=== PATIENT | female | born 1975 | race Caucasian/White ===

== ENCOUNTER 2022-06-08 08:00 | Emergency (ER) | payer OTHER, SELFPAY ==
[2022-06-08 08:22] VITALS: BP 166/108; PULSE 119; RESP 16; TEMP 36.9; O2SAT 97; BMI 49.6
--- NOTE | 2022-06-08 08:24 | ECG_ITS ---
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 Measurements Intervals [place] Rate: 105 P: 34 [place]: 114 QRS: -5 QRSD: 93 T: 15 QT: 335 QTc: 443 Interpretive Statements SINUS TACHYCARDIA WITH SHORT [place] INTERVAL INCOMPLETE RIGHT BUNDLE BRANCH BLOCK [90+ ms QRS DURATION, TERMINAL R IN V1/V2, 40+ ms S IN I/aVL/V4/V5/V6] ABNORMAL RHYTHM ECG No previous ECG available for comparison Electronically Signed On 06-08-2022 21:15:11 CDT by Rosa Maria You M.D. [id number]
--- NOTE | 2022-06-08 08:32 | ED_ITS ---
HPI - Headache General: Chief Complaint: Headache Stated Complaint: Dizzy, Confusion, cant focus, f/v/n Time Seen by Provider: 06/08/22 08:18 Source: patient Mode of arrival: ambulatory Limitations: no limitations History of Present Illness: 47-year-old female presents emergency room with complaints of lightheadedness dizziness low-grade fever and headache began last night sore throat nausea vomiting some diarrhea she also states she is a bit confused although she gives a very detailed and thorough history. 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 She took a rapid antigen test at home but thinks she may have administered it incorrectly. Cough nonproductive. Patient is diabetic. MD elicited complaint: headache Onset (ago): hour(s) Onset description: gradually Location: frontal Severity: moderate Quality & Timing: aching Exacerbating factors: none Relieving factors: nothing Associated symptoms: Reports confusion, cough, malaise, nausea, short of breath and weakness; Deny chest pain, diaphoresis, eye pain, fever(s), lightheadedness, loss of vision, neck stiffness, numbness, paresthesias, photophobia, pre-syncope, rash, seizures, sound sensitivity, syncope or vomiting Review of Systems Const: Reports: fatigue and malaise; Denies: fever(s), chills or diaphoresis ENMT: Denies: throat pain, ear or mastoid pain, nasal discharge or nasal congestion Card: Denies: chest pain, lightheadedness, syncope or pre-syncope Resp: Denies: dyspnea, productive cough or non-productive cough GI: Reports: nausea and diarrhea; Denies: abdominal pain or vomiting : Denies: flank pain, difficulty voiding, dysuria, urinary frequency or urinary urgency Musc: Denies: neck pain or back pain Skin/Breast: Denies: rash Neuro: Reports: headache(s) and confusion PFS ED PFSH: Medical History (Updated 06/08/22 @ 11:24 by Satinder Salazar DO) Diabetes mellitus Social History (Updated 06/08/22 @ 08:44 by Satinder Salazar DO) Smoking and tobacco status: never smoked Alcohol intake: never Physical Exam Const: COMMON NORMALS: no acute distress GENERAL APPEARANCE: cooperative and comfortable ORIENTATION/CONSCIOUSNESS: Yes awake, Yes oriented to person, Yes oriented to place and Yes oriented to time HENMT: COMMON NORMALS: normocephalic, atraumatic and hearing grossly normal bilaterally HEAD & SCALP: normocephalic and atraumatic Eye: DIRECT OPHTHALMOSCOPY: No photophobia Neck/C-Spine: COMMON NORMALS: no JVD Resp: COMMON NORMALS: normal respiratory effort, No retractions, No use of accessory muscles and clear to auscultation bilaterally AUSCULTATION: clear to auscultation bilaterally Cardio: COMMON NORMALS: no JVD, regular rate, regular rhythm and No murmurs present (Cardio) RATE: regular rate RHYTHM: regular rhythm GI: COMMON NORMALS: Soft to palpation and No hepatosplenomegaly present AUSCULTATION: Yes normoactive bowel sounds PALPATION: Yes Soft to palpation, No Tenderness to palpation present (GI), No Guarding due to palpation present (GI) and Yes No hepatosplenomegaly present Extremity: COMMON NORMALS: normal to inspection, capillary refill normal, no c lubbing, cyanosis or edema, no calf tenderness and no pedal edema Neuro: SENSORIUM/ORIENTATION: Yes oriented to person, Yes oriented to place and Yes oriented to time Skin: COMMON NORMALS: no rashes or lesions noted GENERAL SKIN EXAM: no rashes or lesions noted Course Vital Signs: Vital signs: Vital Signs Temperature 98.4 F 06/08/22 08:22 Pulse Rate 78 06/08/22 11:27 Respiratory Rate 18 06/08/22 11:27 Blood Pressure 118/73 06/08/22 11:27 Pulse Oximetry 98 06/08/22 11:27 MDM - Headache Medical Decision Making Suspect patient may have COVID. Vitals stable labs no significant abnormalities nothing clinically significant we will discharge patient home supportive cares advised self quarantine until COVID results have returned. Medical Records I reviewed the patient's medical records. Lab Data I reviewed the patient's lab results. : 06/08/22 08:05 06/08/22 08:05 Radiology Impressions Chest X-Ray 06/08/22 10:19 IMPRESSION: No acute chest abnormality identified. Laboratory Results WBC 12.7 10^3/uL (4.0-10.0) H 06/08/22 08:05 RBC 4.92 10^6/uL (4.1-5.3) 06/08/22 08:05 Hgb 13.9 g/dL (11.5-15.3) 06/08/22 08:05 Hct 40.3 % (37.0-47.0) 06/08/22 08:05 MCV 81.9 fl (81-99) 06/08/22 08:05 MCH 28.3 pg (28.0-34.0) 06/08/22 08:05 MCHC 34.5 g/dL (30.0-36.0) 06/08/22 08:05 RDW 13.5 % (12.1-15.1) 06/08/22 08:05 Plt Count 247 10^3/cmm (130-400) 06/08/22 08:05 MPV 12.3 fL (7.4-10.4) H 06/08/22 08:05 Neut % (Auto) 82.0 % 06/08/22 08:05 Lymph % (Auto) 12.6 % 06/08/22 08:05 [place] % (Auto) 4.4 % 06/08/22 08:05 Eos % (Auto) 0.4 % 06/08/22 08:05 Baso % (Auto) 0.3 % 06/08/22 08:05 Neut # (Auto) 10.39 10^3/uL (1.8-7.7) H 06/08/22 08:05 Lymph # (Auto) 1.6 10^3/uL (0.8-4.8) 06/08/22 08:05 [place] # (Auto) 0.6 10^3/uL (0.2-0.9) 06/08/22 08:05 Eos # (Auto) 0.1 10^3/uL (0.0-0.8) 06/08/22 08:05 Baso # (Auto) 0.0 10^3/uL (0.0-0.1) 06/08/22 08:05 Nucleated RBC % (auto) 0 % 06/08/22 08:05 Nucleated RBCs # 0.0 /100WBC 06/08/22 08:05 Sodium 136 mmol/L (136-145) 06/08/22 08:05 Potassium 3.8 mmol/L (3.5-5.1) 06/08/22 08:05 Chloride 98 mmol/L (98-107) 06/08/22 08:05 Carbon Dioxide 24 mmol/L (22-29) 06/08/22 08:05 Anion Gap 17.8 (5-19) 06/08/22 08:05 BUN 14 mg/dL (6-20) 06/08/22 08:05 Creatinine 0.8 mg/dL (0.5-0.9) 06/08/22 08:05 GFR Calculation 76.6 mL/min (90-130) L 06/08/22 08:05 Glucose 229 mg/dL (65-115) H 06/08/22 08:05 Calculated Osmolality 290 mOsm/kg (285-295) 06/08/22 08:05 Calcium 9.6 mg/dL (8.5-10.5) 06/08/22 08:05 Total Bilirubin 0.5 mg/dL (0.15-1.2) 06/08/22 08:05 AST 14 U/L (0-32) 06/08/22 08:05 ALT 22 U/L (0-33) 06/08/22 08:05 Alkaline Phosphatase 118 IU/L (35-105) H 06/08/22 08:05 Total Protein 7.1 g/dL (6.6-8.7) 06/08/22 08:05 Albumin 4.1 g/dL (3.5-5.2) 06/08/22 08:05 Globulin 3.0 g/dL (1.3-4.6) 06/08/22 08:05 Urine Color Colorless (Yellow) 06/08/22 11:00 Urine Appearance Clear (CLEAR) 06/08/22 11:00 Urine pH 5 (5-7) 06/08/22 11:00 Ur Specific [place] 1.010 (1.005-1.030) 06/08/22 11:00 Urine Protein Neg (Negative) 06/08/22 11:00 Urine Glucose (UA) 4+ (Normal) H 06/08/22 11:00 Urine Ketones 1+ (Negative) H 06/08/22 11:00 Urine Blood Neg (Negative) 06/08/22 11:00 Urine Nitrate Negative (Negative) 06/08/22 11:00 Urine Bilirubin Neg (Negative) 06/08/22 11:00 Urine Urobilinogen Norm mg/dL (Negative) 06/08/22 11:00 Ur Leukocyte Esterase Negative (Negative) 06/08/22 11:00 Discharge Plan Discharge Patient Disposition: Home Clinical Impression: Suspected 2019-nCoV infection, Diabetes mellitus Condition: Stable Prescriptions: No Action atorvastatin 20 mg Tablet 20 mg PO DAILY 0RF metformin 1,000 mg Tablet 1,000 mg PO BID 0RF lisinopril 5 mg Tablet 5 mg PO DAILY 0RF Farxiga 10 mg Tablet 10 mg PO DAILY 0RF Toujeo Max U-300 SoloStar 300 unit/mL (3 mL) insulin pen 40 unit SUBCUT BEDTIME 0RF Discharge Orders: Discharge ED (Routine); Ordered 06/08/22 Ordered By: Satinder Salazar Discharge Diet: Usual diet Discharge Activity: Increase activity as tolerated Patient Instructions: Opioid Safety Activity Restrictions/Additional Instructions: You were tested for COVID-19 the test has not yet resulted. Recommend you maintain self quarantine until results are in worsening symptoms return otherwise supportive cares. Coding Level of Care Code ED Nuclear Instructor for Ines Fwd Exam Comprehensive
[2022-06-08 08:57] LABS: Basophils % 0.3 %; Eosinophils # 0.1 10^3/uL (0.0-0.8); Eosinophils % 0.4 %; Hematocrit 40.3 % (37.0-47.0); Hemoglobin 13.9 g/dL (11.5-15.3); Lymphocytes # 1.6 10^3/uL (0.8-4.8); Lymphocytes % 12.6 %; Mean Corpuscular HGB Conc 34.5 g/dL (30.0-36.0); Mean Corpuscular Hemoglobin 28.3 pg (28.0-34.0); Mean Corpuscular Volume 81.9 fl (81-99); Mean Platelet Volume 12.3 fL (7.4-10.4); Monocytes # 0.6 10^3/uL (0.2-0.9); Monocytes % 4.4 %; Neutrophils # 10.39 10^3/uL (1.8-7.7); Nucleated Red Blood Cells % 0 %; Platelet Count 247 10^3/cmm (130-400); Red Blood Count 4.92 10^6/uL (4.1-5.3); Red Cell Distribution Width 13.5 % (12.1-15.1); White Blood Count 12.7 10^3/uL (4.0-10.0)
[2022-06-08] MEDS: sodium chloride 0.9% 1,000 ML 999 ML IV (08:58)
[2022-06-08 09:08] VITALS: BP 151/88; PULSE 100; RESP 18; O2SAT 92
[2022-06-08 09:20] LABS: Alanine Aminotransferase 22 U/L (0-33); Albumin Level 4.1 g/dL (3.5-5.2); Alkaline Phosphatase 118 IU/L (35-105); Anion Gap 17.8 (5-19); Aspartate Amino Transferase 14 U/L (0-32); Blood Urea Nitrogen 14 mg/dL (6-20); Calcium 9.6 mg/dL (8.5-10.5); Carbon Dioxide 24 mmol/L (22-29); Chloride 98 mmol/L (98-107); Glomerular Filtration Rate 76.6 mL/min (90-130); Glucose 229 mg/dL (65-115); Osmolality Calculated 290 mOsm/kg (285-295); Potassium 3.8 mmol/L (3.5-5.1); Sodium 136 mmol/L (136-145); Total Bilirubin 0.5 mg/dL (0.15-1.2); Total Protein 7.1 g/dL (6.6-8.7)
--- NOTE | 2022-06-08 10:19 | XR_ITS ---
WS: [id number] XR chest 1V portable [id number] REASON FOR EXAM: dyspnea/cough FINDINGS: The heart and mediastinum are within normal limits. No lung nodule or lung mass. Calcified granulomatous disease in both hemithoraces. No acute pulmonary parenchymal or pleural abnormality. Bony thorax is intact without significant focal abnormality. XR/XR chest 1V portable [id number] IMPRESSION: No acute chest abnormality identified.
[2022-06-08 10:35] VITALS: BP 132/84; PULSE 78; RESP 18; O2SAT 97
[2022-06-08 11:10] LABS: Add Urine Microscopic? NO; Charge for UA Resulting for Rev
[2022-06-08 11:15] LABS: Bilirubin Urine Neg (Negative); Blood Urine Neg (Negative); Glucose Urine UA 4+ (Normal); Ketones Urine 1+ (Negative); Leukocyte Esterase Urine Negative (Negative); Nitrate Urine Negative (Negative); Protein Urine Neg (Negative); Urine Appearance Clear (CLEAR); Urine Color Colorless (Yellow); Urobilinogen Urine Norm (Negative); pH Urine 5 (5-7)
[2022-06-08 11:27] VITALS: BP 118/73; PULSE 78; RESP 18; O2SAT 98
== END 2022-06-08 11:40 | disposition home or self-care (01) ==
PROVIDERS: Emergency Provider Family Medicine
DX: Z20.822 Contact with and (suspected) exposure to COVID-19 (principal); E11.9 Type 2 diabetes mellitus without complications; Z79.84 Long term (current) use of oral hypoglycemic drugs; Z79.4 Long term (current) use of insulin
CPT/HCPCS: 71045; 80053; 81003; 85025; 93005; 96360; 96361; 99285; J7030

== ENCOUNTER 2024-10-29 18:44 | Emergency (ER) | payer OTHER, SELFPAY ==
[2024-10-29] VITALS (14 sets, daily range): BP systolic 122–186; BP diastolic 78–115; PULSE 83–117; RESP 15–25; TEMP 36.8; O2SAT 92–99; BMI 49.6
--- NOTE | 2024-10-29 18:50 | ECG_ITS ---
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 Measurements Intervals [place] Rate: 112 P: 44 [place]: 118 QRS: 3 QRSD: 83 T: 54 QT: 319 QTc: 436 Interpretive Statements SINUS TACHYCARDIA WITH SHORT [place] INTERVAL Compared to ECG 06/08/2022 09:03:25 Incomplete right bundle-branch block no longer present Electronically Signed On 10-31-2024 22:00:05 CERTIFIED [employer] [facility] by Federico Nicolas M.D. [id number]
--- NOTE | 2024-10-29 18:56 | XRR_ITS ---
PROCEDURE INFORMATION: Exam: XR Chest Exam date and time: 10/29/2024 7:25 PM Age: 49 years old Clinical indication: Pain; Chest pressure; Additional info: Chest pain dyspnea TECHNIQUE: Imaging protocol: Radiologic exam of the chest. Views: 1 view. COMPARISON: CR XR chest 1V portable [id number] 06/08/2022 10:26 AM FINDINGS: Lungs: Unremarkable. No consolidation. Pleural spaces: Unremarkable. No pleural effusion. No pneumothorax. Heart/Mediastinum: Unremarkable. No cardiomegaly. Diaphragm: Mild asymmetric elevation of the right hemidiaphragm. Bones/joints: Unremarkable. XR/XR chest 1V portable [id number] IMPRESSION: No acute cardiopulmonary findings.
[2024-10-29 19:47] LABS: Basophils % 0.5 %; Eosinophils # 0.4 10^3/uL (0.0-0.8); Eosinophils % 4.2 %; Hematocrit 44.1 % (36-47); Lymphocytes # 1.7 10^3/uL (0.8-4.8); Lymphocytes % 19.6 %; Mean Corpuscular HGB Conc 32.9 g/dL (30-55); Mean Corpuscular Hemoglobin 27.5 pg (27-33); Mean Corpuscular Volume 83.5 fl (85-98); Monocytes # 0.5 10^3/uL (0.2-0.9); Monocytes % 6.3 %; Neutrophils % 69.3 %; Nucleated Red Blood Cells % 0 %; Platelet Count 206 10^3/cmm (157-399); Red Blood Count 5.28 10^6/uL (3.85-5.65); Red Cell Distribution Width 13.7 % (12.1-15.1); White Blood Count 8.52 10^3/uL (3.29-11.43)
--- NOTE | 2024-10-29 19:48 | ED_ITS ---
HPI - Chest Pain 2 General: Chief Complaint: Chest Pain Stated Complaint: CP tight pressure SOB Time Seen by Provider: 10/29/24 19:04 History of Present Illness: Presents to the ER with substernal pressure and shortness of breath. She has had this chest pain off and on for several weeks but tonight it was worse. 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 Is unable to walk up and down her halls now due to the shortness of breath. Patient does not have any cardiac history or history of high blood pressure but has a strong familial history of both. Blood pressure upon arrival was 153/99 but then it escalated and increased to 186/99. Patient is an obese female diabetic. Patient denies any nausea vomiting or diaphoresis. Related Data Home Medications Medication Instructions Recorded Confirmed atorvastatin 20 mg tablet 20 mg PO DAILY 06/08/22 06/08/22 dapagliflozin propanediol 10 mg 10 mg PO DAILY 06/08/22 06/08/22 tablet (Farxiga) insulin glargine U-300 conc 300 40 unit SUBCUT BEDTIME 06/08/22 06/08/22 unit/mL (3 mL) subcutaneous pen (Toujeo Max U-300 SoloStar) lisinopril 5 mg tablet 5 mg PO DAILY 06/08/22 06/08/22 metformin 1,000 mg tablet 1,000 mg PO BID 06/08/22 06/08/22 Allergies Allergy/AdvReac Type Severity Reaction Status Date / Time No Known Allergies Allergy Verified 06/08/22 08:51 Review of Systems 2 General: Reports: 10 or more systems reviewed and unremarkable except in HPI and below PFSH ED 2 PFSH: Medical History Diabetes mellitus Social History Smoking and tobacco/nicotine status: never used tobacco/nicotine Alcohol intake: never Physical Exam 2 Const: COMMON NORMALS: no acute distress, average body habitus, patient oriented x3, no limitations, healthy appearing, alert and well nourished HENMT: COMMON NORMALS: normocephalic, atraumatic, hearing grossly normal bilaterally, external ears normal, Normal external nose present and moist oral mucous membranes HEAD & SCALP: normocephalic and atraumatic NOSE: Normal external nose present EXTERNAL EAR: Yes external ears normal Neck/C-Spine: COMMON NORMALS: full ROM, no lymphadenopathy, supple, no meningeal signs, no JVD and Thyroid normal THYROID: Thyroid normal Chest: COMMONS NORMALS: normal inspection of the chest; negative for normal palpation of entire chest wall (Tender with palpation of sternal region chest.) Resp: COMMON NORMALS: normal respiratory effort, No retractions, No use of accessory muscles and clear to auscultation bilaterally AUSCULTATION: clear to auscultation bilaterally Cardio: COMMON NORMALS: no JVD, regular rate, regular rhythm, S1 normal heart sound present, S2 normal heart sound present, No gallops present (Cardio), No clicks present (Cardio), No murmurs present (Cardio) and No rub (Cardio) R ATE: regular rate RHYTHM: regular rhythm HEART SOUNDS: S1 normal heart sound present and S2 normal heart sound present GI: COMMON NORMALS: Normal to inspection, nondistended, normoactive bowel sounds present, Soft to palpation, non-tender, No hepatosplenomegaly present and no masses PALPATION: Yes Soft to palpation and Yes No hepatosplenomegaly present Neuro: COMMON NORMALS: patient oriented x3 SENSORIUM/ORIENTATION: Yes alert MENINGEAL SIGNS: Yes no meningeal signs Course 2 Vital Signs: Vital signs: Vital Signs Temperature 98.2 F 10/29/24 18:54 Pulse Rate 117 H 10/29/24 18:54 Respiratory Rate 20 H 10/29/24 18:54 Blood Pressure 168/107 10/29/24 20:19 Pulse Oximetry 94 10/29/24 18:54 Oxygen Delivery Me thod Room Air 10/29/24 18:54 MDM - Chest Pain Medical Decision Making Patient worked up in standard chest pain fashion chest x-ray, EKG, enzymes, patient was pain-free her entire time. She did get 0.2 mg clonidine and 10 mg of hydralazine for her blood pressure. Which corrected to 122/78. Patient was chest pain-free. Patient be discharged home Medical Records I reviewed the patient's medical records. Lab Data I reviewed the patient's lab results. 10/29/24 19:34 Radiology Impressions Chest X-Ray 10/29/24 18:56 IMPRESSION: No acute cardiopulmonary findings. Laboratory Results WBC 8.52 10^3/uL (3.29-11.43) 10/29/24 19:34 RBC 5.28 10^6/uL (3.85-5.65) 10/29/24 19:34 Hgb 14.50 g/dL (11.27-16.99) 10/29/24 19:34 Hct 44.1 % (36-47) 10/29/24 19:34 MCV 83.5 fl (85-98) L 10/29/24 19:34 MCH 27.5 pg (27-33) 10/29/24 19:34 MCHC 32.9 g/dL (30-55) 10/29/24 19:34 RDW 13.7 % (12.1-15.1) 10/29/24 19:34 Plt Count 206 10^3/cmm (157-399) 10/29/24 19:34 MPV 13.0 fL (7.4-10.4) H 10/29/24 19:34 Neut % (Auto) 69.3 % 10/29/24 19:34 Lymph % (Auto) 19.6 % 10/29/24 19:34 [place] % (Auto) 6.3 % 10/29/24 19:34 Eos % (Auto) 4.2 % 10/29/24 19:34 Baso % (Auto) 0.5 % 10/29/24 19:34 Neut # (Auto) 5.90 10^3/uL (1.8-7.7) 10/29/24 19:34 Lymph # (Auto) 1.7 10^3/uL (0.8-4.8) 10/29/24 19:34 [place] # (Auto) 0.5 10^3/uL (0.2-0.9) 10/29/24 19:34 Eos # (Auto) 0.4 10^3/uL (0.0-0.8) 10/29/24 19:34 Baso # (Auto) 0.0 10^3/uL (0.0-0.1) 10/29/24 19:34 Nucleated RBC % (auto) 0 % 10/29/24 19:34 Nucleated RBCs # 0.0 /100WBC 10/29/24 19:34 Troponin T Baseline 21 ng/L (0-10) H 10/29/24 19:34 Troponin T 120 Minute 21.71 ng/L (0-10) H 10/29/24 21:31 Delta Troponin T 0.71 ABS# (0-10) 10/29/24 21:31 All radiology interpretation(s) finalized by discharge Discharge Plan Discharge Patient Disposition: Home Clinical Impression: Chest pain Qualifiers: Chest pain type: unspecified Qualified Code(s): R07.9 - Chest pain, unspecified Condition: Stable Prescriptions: No Action atorvastatin 20 mg Tablet 20 mg PO DAILY metformin 1,000 mg Tablet 1,000 mg PO BID lisinopril 5 mg Tablet 5 mg PO DAILY Farxiga 10 mg Tablet 10 mg PO DAILY Toujeo Max U-300 SoloStar 300 unit/mL (3 mL) insulin pen 40 unit SUBCUT BEDTIME Discharge Orders: Discharge ED (Routine); Ordered 10/29/24 Ordered By: Sudarshan Hassan Referrals: Emerald Rodriguez DO [Primary Care Provider] - Patient Instructions: Chest Pain (ED) Activity Restrictions/Additional Instructions: Thank you for choosing [facility] for your healthcare needs today. Please realize that you were seen in the emergency department and that we are providing you with an emergency medical screening exam and this may not be a complete and all exclusive of all testing and/or medical workup we may need to determine your element or severity of your illness. It is very important that you follow-up as instructed with your primary care provider or specialist for the additional evaluation and to discuss your medical treatment plan. You may return to the emergency department should you have concerns or if your condition changes or worsens in any way. Coding Level of Care Code ED Umbrella Tipper for Ines Winston
[2024-10-29 19:59] LABS: Troponin(5th) Baseline 21 ng/L (0-10)
[2024-10-29] MEDS: cloNIDine 0.1 mg Tablet 0.2 MG PO (20:19)
[2024-10-29 22:11] LABS: Troponin 5 2HR 21.71 ng/L (0-10); Troponin 5 2HR Delta 0.71 ABS# (0-10)
[2024-10-29] MEDS: hyDRALAzine 20 mg/mL INJ 1 mL 10 MG IVP (22:21)
== END 2024-10-29 23:20 | disposition home or self-care (01) ==
PROVIDERS: Emergency Provider Emergency Medicine; PCP Family Medicine
DX: R07.9 Chest pain, unspecified (principal); Z79.84 Long term (current) use of oral hypoglycemic drugs; E11.9 Type 2 diabetes mellitus without complications
CPT/HCPCS: 36415; 71045; 84484; 85025; 93005; 96374; 99285; J0360